=== PATIENT | female | born 1950 | race Caucasian/White ===

== ENCOUNTER 2018-07-20 14:44 | Emergency (ER) | payer MEDICARE, SELFPAY ==
[2018-07-20 14:45] VITALS: BP 136/78; PULSE 75; RESP 18; TEMP 36.6; O2SAT 98; BMI 24.4
--- NOTE | 2018-07-20 15:09 | EKG12_ITS ---
Test Reason : ABD PAIN Blood Pressure : / mmHG Vent. Rate : 068 BPM Atrial Rate : 068 BPM P-R Int : 130 ms QRS Dur : 080 ms QT Int : 420 ms P-R-T Axes : -05 035 025 degrees QTc Int : 446 ms Normal sinus rhythm Normal ECG Confirmed by SETH MICHELLE, ANIBAL ([id number]), index editor TERA HENDRICKSON ([id number]) on 07/22/2018 1:16:54 PM Referred By: AGUEDA Confirmed By:ANIBAL ANN MD
--- NOTE | 2018-07-20 15:09 | CT_ITS ---
STUDY: CT ABDOMEN AND PELVIS WITH CONTRAST REASON FOR EXAM: Female, 68 years old. Epigastric pain RADIATION DOSAGE (If Supplied By Facility): CTDIvol = ( 13.08 ) mGy, DLP = ( 612.17 ) mGycm TECHNIQUE: Transaxial images were obtained from the dome of the diaphragm to the symphysis pubis without oral contrast. 100CC ml of Isovue 300 contrast was administered. Sagittal and coronal images were reconstructed. Individualized dose optimization techniques were used for this CT. COMPARISON: Chest x-ray same date FINDINGS: Body wall soft tissues: No acute process. Osseous structures: No acute process. Inferior chest: There is a noncalcified subpleural pulmonary nodule right lower lobe lateral basilar segment in the sulcus measuring 4 mm, nonspecific. The lung bases are otherwise clear. Normal distal esophagus. Normal cardiac base. Hepatobiliary: Left hepatic cyst 1.2 cm, right hepatic cyst 1.3 cm, right hepatic cyst 7 mm, tiny caudate lobe cystlike focus and another tiny left hepatic cystlike focus, each measuring approximately 5 mm. The larger cysts exhibit simple cystic features, benign appearance. The smaller cysts are incompletely characterized based on size. Normal gallbladder and biliary tree. Pancreas: Minimal pancreatic ductal ectasia. No suspicious focal lesion and no significant atrophy. Spleen: Normal. Adrenal glands: Normal. Urogenital: Normal kidneys, collecting systems, ureters, urinary bladder, uterus. Tubal ligation clips bilateral adnexa. Unremarkable ovaries. No cul-de-sac free fluid. Pelvic floor and sidewalls and retroperitoneum: No mass or adenopathy. Vasculature: Mild atherosclerosis. Stomach: No acute process. Small bowel and mesentery: No acute process. Large bowel: Normal appendix. Diverticulosis of the distal descending and proximal to mid sigmoid colon, chronic-appearing thickening of wall of the proximal sigmoid colon without evidence of acute focal diverticulitis. Normal rectum. Free fluid or free air: None. CT/Abdomen/Pelvis W IV Cont ONLY IMPRESSION: Diverticulosis of the sigmoid colon without evidence of acute diverticulitis. No other acute abdominopelvic process is evident. There is a 4 mm pulmonary nodule at the right lung base, nonspecific. If the patient has any significant history of smoking (elevated risk factors), CT follow-up in 12 months is recommended based on the Fleischner Society Criteria 2017. In the absence of risk factors, no specific follow-up is recommended. Electronically Signed: Neeraj James, at 16:42 EDT Tel , Service support ,
--- NOTE | 2018-07-20 15:09 | RAD_ITS ---
STUDY: X-RAY CHEST REASON FOR EXAM: Female, 68 years old. Epigastric pain. TECHNIQUE: Single AP portable view of the chest. COMPARISON: None. FINDINGS: Hyperinflation. The lungs are clear. There is no demonstrated pleural abnormality. Normal size heart. Normal mediastinum and desiree. Normal visualized pulmonary arteries. There is atherosclerotic tortuosity of the aortic arch and descending thoracic aorta. There are diffuse degenerative changes of the visualized thoracic spine. Normal visualized ribs, clavicles, and shoulders. There is no demonstrated abnormality of the visualized soft tissue structures of the upper abdomen. RAD/Chest 1 View (Portable) IMPRESSION: Hyperinflation. The lungs are clear. Electronically Signed: Emmett Fish MD at 15:34 EDT Tel [phone], Service support ,
--- NOTE | 2018-07-20 15:14 | ED.DCSUM_ITS ---
- ER Visit Summary Date of Service: 07/20/18 Chief Complaint: Abdominal pain History of Present Illness: The patient is a 68 F with epigastric abdominal pain. History is limited as the patient has a aphasia of an unknown origin. She has been having epigastric abdominal pain. It was initially thought to be chest pain and she was evaluated in the emergency department several weeks ago. She saw her doctor yesterday who tried medications for her stomach, but her symptoms seem to be worsening. She has associated nausea. No other significant symptoms. History of diverticulitis, aortic valve disease, and thyroid surgery. Non-smoker. Physical Examination: Afebrile and vital signs unremarkable. Patient has expressive aphasia with nonsensical words. Heart regular rate and rhythm. Lungs clear bilaterally. Abdomen tender in the epigastric region. No guarding or rebound. Extremities nontender with no edema. Skin normal in color without pallor or jaundice. Patient is alert and in no acute distress. Test Results: EKG, chest x-ray, CT abdomen pelvis, labs, urine pending Emergency Department Course and Treatment: Patient treated with fluids, morphine , and Zofran while awaiting results. CBC normal. Chloride 108, CO2 20, BUN 22. Hepatic panel and lipase normal. Urinalysis unremarkable. Troponin normal. Chest x-ray showed hyperinflation but no acute abnormalities. CT showed diverticulosis without diverticulitis and a lung nodule but nothing else acute. Follow-up in 12 months. Continue home medications and outpatient follow-up. Treatment Plan: As above Disposition: Discharge Impression: 1. Abdominal pain unclear etiology 2. Lung nodule This note was generated with [employer] dictation software. It may contain incorrect words, spelling, and punctuation that were not noted in review of the chart prior to signing ED Disposition - Plan for ED Patient: Disposition: Home or Assisted Living Chief Complaint: Abd Pain Instructions: ED Abdominal Pain Unkn Cause Referrals: Ayanna Yousif MD [Primary Care Provider] -
[2018-07-20] MEDS: 0.9% Normal Saline 1,000 ML 1000 ML IV (15:28)
[2018-07-20] MEDS: Ondansetron 4 MG/2 ML Vial IV (15:29)
[2018-07-20] MEDS: Morphine 4 MG/ML Syringe IV (15:29)
[2018-07-20 15:39] LABS: Absolute Lymphocyte Count 1.71 X10^3/ul (0.83-4.51); Absolute Neutrophil Count 2.1 X10^3/uL (2.0-7.7); Basophil# 0.04 X10^3/uL; Basophil% 0.9 % (0-1); Eosinophil# 0.05 X10^3/uL; Eosinophils% 1.1 % (0-5); Hematocrit 35.6 % (37-47); Hemoglobin 12.4 g/dl (12.0-15.0); Lymphocyte # 1.71 X10^3/ul (4.0); Lymphocyte % 39.2 % (19-41); Mean Corp Hgb Conc 34.8 g/gl (32-36); Mean Corpuscular Hgb 30.2 pg (27.0-32.0); Mean Corpuscular Volume 86.8 fL (81-99); Monocyte# 0.47 X10^3/uL; Monocyte% 10.8 % (0-10); Neutrophil # 2.09 X10^3/uL (2.7-7.7); Platelet Count 225 K/mm3 (150-450); RBC Distribution Width CV 12.3 % (11.6-14.6); RBC Distribution Width SD 38.2 fl (35.1-43.9); White Blood Count 4.4 K/mm3 (4.4-11.0)
[2018-07-20 15:42] LABS: POSITIVE COUNT NO; POSITIVE DIFFERENTIAL NO; POSITIVE MORPHOLOGY NO
[2018-07-20 15:49] LABS: Bacteria 0 SEEN /hpf (None Seen)
[2018-07-20 15:53] LABS: ALB/GLOB Ratio 1.2 RATIO (0.9-2.4); AST(SGOT) 24 U/L (15-37); Alanine Aminotransfer ALT/SGPT 25 U/L (13-56); Albumin, Serum 4.1 g/dL (3.2-5.0); Alkaline Phosphatase 70 U/L (45-117); Anion Gap 12 (5-15); BUN 22 mg/dL (7-18); BUN/Creat Ratio 22.9 RATIO (10-20); Chloride 108 mmol/L (98-107); Creatinine, Serum 0.96 mg/dL (0.55-1.02); EST Glomerular Filtration Rate 61 mL/min (>60); Est Glom Filt Rate - Afr Amer 74 mL/min (>60); Estimated Creatinine Clearance 45.75 ml/min; Globulin 3.3 g/dL (2.2-4.2); Glucose 83 mg/dL (74-106); Lipase 234 U/L (73-393); Potassium 3.5 mmol/L (3.5-5.1); Protein, Total 7.4 g/dL (6.4-8.2); Sodium Level 140 mmol/L (136-145)
[2018-07-20 16:16] LABS: Color, Urine Yellow (Yellow); Glucose, Dipstick Normal (Normal); Leukocyte Esterase-Dipstick 25 /ul (Negative); Nitrite-Dipstick Negative (Negative); Occult Blood-Urine 25 /ul (Negative); Protein-Dipstick 15 mg/dl (Negative); Specific Gravity, Urine 1.015 (1.002-1.030); Urine Clarity Clear (Clear); Urine Urobilinogen 1 mg/dl (Normal); Urine pH 6.5 (5.0 - 8.0)
[2018-07-20 16:27] LABS: Urine Bilirubin Dipstick 1 mg/dL (Negative)
[2018-07-20 16:28] LABS: Ketone-Dipstick 150 mg/dl (Negative)
[2018-07-20 16:32] LABS: Mucous, Urine 2+ /hpf (<or=2+); Red Blood Cells-Urine 5-10 SEEN /hpf (0-5); Squamous Epithelial Cells - UA 0-5 SEEN /hpf (5-10); White Blood Cells 0-5 SEEN /hpf (0-5)
--- NOTE | 2018-07-20 17:51 | ED.DEP ---
ED Disposition - Plan for ED Patient: Chief Complaint: Abd Pain Instructions: ED Abdominal Pain Unkn Cause Referrals: Ayanna Yousif MD [Primary Care Provider] -
[2018-07-20 18:15] VITALS: BP 154/74; PULSE 65; RESP 16; O2SAT 99
== END 2018-07-20 18:16 | disposition home or self-care (01) ==
PROVIDERS: Emergency Provider Emergency Medicine; Family Provider Internal Medicine; PCP Internal Medicine
DX: R10.13 Epigastric pain (principal); R91.1 Solitary pulmonary nodule; R11.0 Nausea; R47.01 Aphasia; K57.30 Diverticulosis of large intestine without perforation or abscess without bleeding; I35.8 Other nonrheumatic aortic valve disorders; Z87.19 Personal history of other diseases of the digestive system; Z79.899 Other long term (current) drug therapy
CPT/HCPCS: 71045; 74177; 80053; 81001; 83690; 84484; 85025; 93005; 96361; 96374; 96375; 99283; J7030; Q9967; J2405

== ENCOUNTER 2018-07-25 16:16 | Emergency (ER) | payer MEDICARE, SELFPAY ==
[2018-07-25 16:17] VITALS: BP 155/77; PULSE 79; RESP 18; TEMP 36.7; O2SAT 98; BMI 25.2
[2018-07-25 16:59] VITALS: BP 154/116; PULSE 74; RESP 16; O2SAT 100
[2018-07-25 18:37] LABS: Absolute Lymphocyte Count 1.47 X10^3/ul (0.83-4.51); Absolute Neutrophil Count 2.4 X10^3/uL (2.0-7.7); Basophil# 0.04 X10^3/uL; Basophil% 0.9 % (0-1); Eosinophil# 0.08 X10^3/uL; Eosinophils% 1.8 % (0-5); Hematocrit 36.3 % (37-47); Hemoglobin 12.9 g/dl (12.0-15.0); Lymphocyte # 1.47 X10^3/ul (4.0); Lymphocyte % 32.2 % (19-41); Mean Corp Hgb Conc 35.5 g/gl (32-36); Mean Corpuscular Hgb 30.4 pg (27.0-32.0); Mean Corpuscular Volume 85.6 fL (81-99); Mean Platelet Vol. 9.5 fl (6.2-12.0); Monocyte# 0.55 X10^3/uL; Neutrophil # 2.43 X10^3/uL (2.7-7.7); Neutrophil % 53.1 % (47-70); Platelet Count 217 K/mm3 (150-450); RBC Distribution Width CV 12.3 % (11.6-14.6); RBC Distribution Width SD 37.2 fl (35.1-43.9); Red Blood Count 4.24 M/mm3 (4.2-5.4); White Blood Count 4.6 K/mm3 (4.4-11.0)
[2018-07-25 18:39] LABS: POSITIVE COUNT NO; POSITIVE DIFFERENTIAL NO; POSITIVE MORPHOLOGY NO
[2018-07-25 18:49] LABS: ALB/GLOB Ratio 1.3 RATIO (0.9-2.4); AST(SGOT) 40 U/L (15-37); Alanine Aminotransfer ALT/SGPT 38 U/L (13-56); Albumin, Serum 4.1 g/dL (3.2-5.0); Alkaline Phosphatase 64 U/L (45-117); Anion Gap 12 (5-15); BUN 17 mg/dL (7-18); BUN/Creat Ratio 19.8 RATIO (10-20); Calcium,Total 8.9 mg/dL (8.5-10.1); Chloride 108 mmol/L (98-107); Creatinine, Serum 0.86 mg/dL (0.55-1.02); EST Glomerular Filtration Rate 70 mL/min (>60); Est Glom Filt Rate - Afr Amer 84 mL/min (>60); Estimated Creatinine Clearance 48.83 ml/min; Globulin 3.2 g/dL (2.2-4.2); Glucose 81 mg/dL (74-106); Lipase 323 U/L (73-393); Potassium 3.2 mmol/L (3.5-5.1); Protein, Total 7.3 g/dL (6.4-8.2); Sodium Level 140 mmol/L (136-145)
[2018-07-25] MEDS: Ondansetron 4 MG/2 ML Vial IV (18:57)
[2018-07-25] MEDS: Morphine 2 MG/ML Syringe IV (18:57)
[2018-07-25 19:02] VITALS: BP 154/83; PULSE 63; RESP 16; O2SAT 100
--- NOTE | 2018-07-25 19:14 | ED.VISSUMM ---
- ER Visit Summary Date of Service: 07/25/18 Chief Complaint: Abdominal pain History of Present Illness: The patient is a 68 F who presents with abdominal pain. History is limited due to expressive aphasia. This is due to primary progressive aphasia rather than stroke. Over the last 2-3 weeks she has been complaining of abdominal pain which is worse in the lower abdomen. She has been seen at [facility] emergency department. She was also recently seen in this emergency department and labs and a CT which was normal. No nausea vomiting or diarrhea. No fevers. Physical Examination: Afebrile vitals are notable for elevated blood pressure otherwise normal Moist mucous membranes Heart regular rate and rhythm Lungs clear Abdomen soft nondistended she does have left lower quadrant tenderness without guarding without rebound Alert Test Results: CBC and CMP and lipase are notable for potassium of 3.2 otherwise basically normal. Emergency Department Course and Treatment: Patient was given morphine and Zofran here for symptomatic control. She does have a history of prior diverticulitis. There was not evidence of diverticulitis on her recent CT but she has developed more focal left lower quadrant pain. Given lack of fever tachycardia leukocytosis I did not feel that she needed reimaged given that she just recently had a CT but would treat her for possible early diverticulitis. She was given a prescription for oral antibiotics and will be discharged home. She understands return for new or worsening symptoms. Treatment Plan: [] Disposition: Discharge Impression: Left lower quadrant abdominal pain, possible early diverticulitis This note was generated with [employer] dictation software. It may contain incorrect words, spelling, and punctuation that were not noted in review of the chart prior to signing ED Disposition - Plan for ED Patient: Chief Complaint: Abd Pain Referrals: Ayanna Yousif MD [Primary Care Provider] -
--- NOTE | 2018-07-25 19:16 | ED.DEP ---
ED Disposition - Plan for ED Patient: Chief Complaint: Abd Pain Prescriptions: Metronidazole [Flagyl] 500 mg PO Q8H #21 tab Ciprofloxacin [Cipro] 500 mg PO BID #14 tab Referrals: Ayanna Yousif MD [Primary Care Provider] -
[2018-07-25 19:44] VITALS: BP 147/74; PULSE 66; RESP 18; O2SAT 99
== END 2018-07-25 19:45 | disposition home or self-care (01) ==
LOC: ED 18:59
PROVIDERS: Emergency Provider Emergency Medicine; Family Provider Internal Medicine; PCP Internal Medicine
DX: R10.32 Left lower quadrant pain (principal); R47.01 Aphasia; K21.9 Gastro-esophageal reflux disease without esophagitis; I10 Essential (primary) hypertension; E03.9 Hypothyroidism, unspecified; Z87.19 Personal history of other diseases of the digestive system; Z79.899 Other long term (current) drug therapy
CPT/HCPCS: 80053; 83690; 85025; 96374; 96375; 99283; A4216; J2405

== ENCOUNTER 2018-08-07 12:34 | Emergency (ER) | payer MEDICARE, SELFPAY ==
[2018-08-07 12:34] VITALS: BP 132/71; PULSE 80; RESP 16; TEMP 36.6; O2SAT 100; BMI 23.9
--- NOTE | 2018-08-07 12:48 | CT_ITS ---
STUDY: CT ABDOMEN AND PELVIS WITHOUT CONTRAST REASON FOR EXAM: Female, 68 years old. Lower abdominal pain. Recently seen in the ER for similar findings. RADIATION DOSAGE (If Supplied By Facility): CTDIvol = ( 6.23 ) mGy, DLP = ( 279.95 ) mGycm TECHNIQUE: Transaxial images were obtained from the dome of the diaphragm to the symphysis pubis without oral contrast, and without intravenous contrast. Sagittal and coronal images were reconstructed. Individualized dose optimization techniques were used for this CT. COMPARISON: CT of the abdomen and pelvis, July 20, 2018. FINDINGS: There is a stable pleural-based density in the right lateral costophrenic angle. This appears unchanged from prior exam. The visualized portions of the heart are within normal limits. Liver is normal in size and contour. There are stable cysts in segments 2, 8 and 6 of the liver. Normal gallbladder and extrahepatic biliary system. Normal spleen. Normal pancreas. Normal bilateral adrenal glands. Normal right kidney. Normal left kidney. Normal bilateral ureters. Normal visualized stomach. Normal small intestine. There is descending and sigmoid diverticulosis without acute inflammatory change. The proximal colon is normal. The appendix is visualized and appears normal. There is diffuse atherosclerotic calcification of the abdominal aorta, without a demonstrated aneurysm. Normal inferior vena cava. Normal retroperitoneum. Normal urinary bladder. Normal uterus. There are tubal ligation clips. Normal adnexa. There is no pelvic lymphadenopathy or mass. No free air or free fluid is seen within the peritoneal cavity. There is a small umbilical hernia of omental fat. The abdominal wall is otherwise unremarkable. There is minimal anterolisthesis of L3 on L4 without pars defects. Lumbar spine appears otherwise unremarkable. CT/Abdomen/Pelvis without Cont IMPRESSION: 1. Stable hepatic cysts. 2. Colonic diverticulosis without acute inflammatory change. 3. Stable lumbar spine findings. 4. There is no evidence of acute intra-abdominal process or interval change. Electronically Signed: Jermaine Bedolla DO at 14:09 EDT Tel [phone], Service support ,
--- NOTE | 2018-08-07 12:49 | EKG12_ITS ---
Test Reason : DYSRHYTHMIA Blood Pressure : / mmHG Vent. Rate : 070 BPM Atrial Rate : 070 BPM P-R Int : 134 ms QRS Dur : 076 ms QT Int : 416 ms P-R-T Axes : -02 040 012 degrees QTc Int : 449 ms Normal sinus rhythm Normal ECG Confirmed by SETH MICHELLE, ANIBAL ([id number]), managing editor TERA HENDRICKSON ([id number]) on 08/09/2018 3:06:42 PM Referred By: YAMILKA Confirmed By:ANIBAL ANN MD
--- NOTE | 2018-08-07 12:52 | ED.DCSUM_ITS ---
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 The patient's been having lower abdominal pain that is migratory for about a month she was seen by the primary care office she is been seen in the emergency department she had lab testing CAT scans are unremarkable the etiology of the pain is unclear, at one point time recently she was started on oral antibiotics because of the concern for possible diverticulitis which she has had in the past, she did not like the taste of the antibiotic so she only took them for a few days, the daughter reports the patient indicated to her that she was having more abdominal pain and she brought her to the hospital The patient is able to basically execute all of her daily activities in the home so she dresses herself cooks for herself goes to the restroom on her own, per the daughter has been no change in her bowel or bladder habits no fever no cough nothing makes the pain better or worse Physical Examination: [] General, no distress resting comfortably HEENT is generally unremarkable The neck is supple no adenopathy Cardiovascular, regular rate and rhythm Lungs, clear bilateral Abdomen, soft nontender, the patient points to the lower abdominal regions right and left complaining of pain here the abdomen is soft and nontender there is no organomegaly fullness or other abnormalities the back is unremarkable Rectal exam shows soft brown stool nontender Extremities, no clubbing cyanosis or edema Neurologic, awake alert answering questions with nonsensical responses which per the daughter is at her baseline, so she is moving all 4 extremities and neurologically at her baseline Test Results: [] Emergency Department Course and Treatment: [] Given the complaints IV fluids UA labs CT abdomen, all of the studies are generally unremarkable please see those reports, calcium slightly low oral supplementation given, the CT scan showed no acute interval change of any kind, patient is resting comfortably in the bed of explained to the daughter that given the chronic nature of this lower abdominal pelvic pain the etiology is unclear she should follow with her outpatient providers for further management she might consider making the patient appoint with 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 It may contain incorrect words, spelling, and punctuation that were not noted in review of the chart prior to signing ED Disposition - Plan for ED Patient: Chief Complaint: Abd Pain Referrals: Ayanna Yousif MD [Primary Care Provider] -
[2018-08-07] MEDS: 0.9% Normal Saline 1,000 ML 1000 ML IV (13:18)
[2018-08-07] MEDS: Morphine 4 MG/ML Syringe IV (13:18)
[2018-08-07] MEDS: Ondansetron 4 MG/2 ML Vial IV (13:19)
[2018-08-07 13:40] LABS: Absolute Lymphocyte Count 1.22 X10^3/ul (0.83-4.51); Absolute Neutrophil Count 1.8 X10^3/uL (2.0-7.7); Basophil# 0.05 X10^3/uL; Basophil% 1.5 % (0-1); Eosinophil# 0.05 X10^3/uL; Eosinophils% 1.5 % (0-5); Hematocrit 36.9 % (37-47); Hemoglobin 13.1 g/dl (12.0-15.0); Lymphocyte # 1.22 X10^3/ul (4.0); Lymphocyte % 35.9 % (19-41); Mean Corp Hgb Conc 35.5 g/gl (32-36); Mean Corpuscular Hgb 30.4 pg (27.0-32.0); Mean Corpuscular Volume 85.6 fL (81-99); Mean Platelet Vol. 9.4 fl (6.2-12.0); Monocyte# 0.33 X10^3/uL; Monocyte% 9.7 % (0-10); Neutrophil # 1.75 X10^3/uL (2.7-7.7); Neutrophil % 51.4 % (47-70); POSITIVE COUNT NO; POSITIVE DIFFERENTIAL NO; POSITIVE MORPHOLOGY NO; Platelet Count 242 K/mm3 (150-450); RBC Distribution Width CV 12.2 % (11.6-14.6); RBC Distribution Width SD 36.9 fl (35.1-43.9); Red Blood Count 4.31 M/mm3 (4.2-5.4); White Blood Count 3.4 K/mm3 (4.4-11.0)
[2018-08-07 13:50] LABS: AST(SGOT) 21 U/L (15-37); Alanine Aminotransfer ALT/SGPT 28 U/L (13-56); Alkaline Phosphatase 55 U/L (45-117); Anion Gap 11 (5-15); BUN 14 mg/dL (7-18); BUN/Creat Ratio 15.9 RATIO (10-20); Bilirubin, Direct 0.13 mg/dL (0.00-0.30); Calcium,Total 9.1 mg/dL (8.5-10.1); Chloride 110 mmol/L (98-107); Creatinine, Serum 0.88 mg/dL (0.55-1.02); EST Glomerular Filtration Rate 68 mL/min (>60); Est Glom Filt Rate - Afr Amer 82 mL/min (>60); Estimated Creatinine Clearance 47.72 ml/min; Globulin 3.2 g/dL (2.2-4.2); Glucose 94 mg/dL (74-106); Lipase 254 U/L (73-393); Potassium 3.3 mmol/L (3.5-5.1); Protein, Total 7.2 g/dL (6.4-8.2); Sodium Level 142 mmol/L (136-145)
[2018-08-07 14:45] LABS: Bacteria 0 SEEN /hpf (None Seen); Mucous, Urine 0 SEEN /hpf (<or=2+); Red Blood Cells-Urine 0 SEEN /hpf (0-5); Squamous Epithelial Cells - UA 0 SEEN /hpf (5-10); White Blood Cells 0 SEEN /hpf (0-5)
[2018-08-07 14:58] LABS: Color, Urine Yellow (Yellow); Glucose, Dipstick Normal (Normal); Ketone-Dipstick 5 mg/dl (Negative); Leukocyte Esterase-Dipstick Negative /ul (Negative); Nitrite-Dipstick Negative (Negative); Occult Blood-Urine Negative /ul (Negative); Protein-Dipstick Negative (Negative); Urine Bilirubin Dipstick Negative (Negative); Urine Clarity Clear (Clear); Urine Urobilinogen Normal (Normal)
--- NOTE | 2018-08-07 15:26 | ED.DEP ---
ED Disposition - Plan for ED Patient: Chief Complaint: Abd Pain Instructions: ED Abdominal Pain Unkn Cause Referrals: Ayanna Yousif MD [Primary Care Provider] -
[2018-08-07 16:54] VITALS: BP 160/85
== END 2018-08-07 16:55 | disposition home or self-care (01) ==
LOC: ED 13:26
PROVIDERS: Emergency Provider Emergency Medicine; Family Provider Internal Medicine; PCP Internal Medicine
DX: R10.31 Right lower quadrant pain (principal); R10.32 Left lower quadrant pain; R47.01 Aphasia; Z87.19 Personal history of other diseases of the digestive system
CPT/HCPCS: 74176; 80048; 80076; 81001; 83690; 84484; 85025; 87086; 87088; 93005; 96361; 96374; 96375; 99285; J7030; A4216; J2405

== ENCOUNTER 2018-08-10 08:37 | Observation (INO) | payer MEDICARE, SELFPAY ==
[2018-08-10] VITALS (15 sets, daily range): BP systolic 85–156; BP diastolic 39–78; PULSE 52–79; RESP 12–20; TEMP 35.8–36.6; O2SAT 91–100; BMI 23.8; BMI 22.8; BMI 22.9
--- NOTE | 2018-08-10 | IMM_PTH ---
PATIENT: SHANIA MCQUEEN LOC: PCU U#:[id number] AGE/SX: 68/F ROOM: [facility] RE08/10/[address]: Dr. Colby Valdez MD : 1950 BED: 1 DIS: 08/11/2018 SPEC #: [id number] RECD: 08/10/18 14:50 STATUS: KHALIDA REQ #: [id number] BILLY: 08/10/18 00:[address]: Colby Valdez DEPT: IMMUNOHISTOCHEMISTRY RECD BY: Lali Suarez ENTERED: 08/10/18 14:51 SP TYPE: IMMUNO OTHR DR: Dr. Ayanna Yousif MD Tissues: Stomach, NOS Procedures: H Pylori (initial) PHYSICIAN & INSTITUTION [place] [id number] SPECIMEN INFORMATION: Tissue Source: Antral biopsy Clinical Info: GI bleed Specimen Number: [id number] CPT code: 50989 METHODOLOGY: Deparaffinized sections of prefer/formalin-fixed tissue or PAP/DQ stained slides are incubated with monoclonal/polyclonal antibodies/oligonucleotide probes. Localization is made via biotin free immunoperoxidase method. Appropriate controls are performed and reacted as expected. Results on target cell population are indicated in the following table: RESULTS: ANTIBODY / CLONE RESULT H Pylori (polyclonal) negative These tests were developed and their performance characteristics determined by [facility]. They may not have been cleared or approved by the U.S. Food and Drug Administration. The FDA has determined that such clearance or approval is not necessary. INTERPRETATION: Antral biopsy: Negative for Helicobacter pylori organisms. MALACHI:govind 08/11/18
--- NOTE | 2018-08-10 | GASB_PTH ---
PATIENT: SHANIA MCQUEEN LOC: PCU U#:[id number] AGE/SX: 68/F ROOM: [facility] RE08/10/[address]: Dr. Colby Valdez MD : 1950 BED: 1 DIS: 08/11/2018 SPEC #: [id number] RECD: 08/10/18 14:24 STATUS: KHALIDA REJose Angel #: [id number] BILLY: 08/10/18 00:[address]: Colby Valdez DEPT: SURGICAL PATHOLOGY RECD BY: Silverio Morataya ENTERED: 08/10/18 14:24 SP TYPE: Gastric Bx OTHR DR: Dr. Ayanna Yousif MD Tissues: Gastric mucous membrane Procedures: Surgery Specimen Level IV HEADER OPERATION: EGD ([facility]) PRE-OP DIAGNOSIS: GI bleed TISSUE SUBMITTED: Antral biopsy for H. pylori and pathology MICROSCOPIC DIAGNOSIS Gastric antrum, biopsy: Chronic gastritis. AM:govind 10/10/18 COMMENT The results of immunohistochemistry for Helicobacter pylori will be reported separately ([id number]). MICROSCOPIC DESCRIPTION Slides are reviewed. GROSS DESCRIPTION Received in fixative is one container labeled with the patient's name and designated antral biopsy. The specimen consists of one irregular fragment of light regan soft tissue that measures 0.8 x 0.2 x 0.1 cm. The specimen is totally submitted in one cassette. / SJ:rg 08/10/18 TC:3 CPT: 95299
--- NOTE | 2018-08-10 09:06 | ED.DCSUM_ITS ---
- ER Visit Summary Date of Service: 08/10/18 Chief Complaint: Nausea vomiting epigastric pain blood streaks in her vomitus History of Present Illness: The patient is a 68 F with 1 month history of epigastric pain, she has had some nausea and vomiting she has been seen in the emergency department as well as by PCP, she has an appointment in 3 weeks to see gastroenterology. She has no fever chills or weight loss. The concern today is that after vomiting she noticed some blood streaks. This has resolved and she feels back to her baseline although she still has some nausea and epigastric pain similar to what she has had over the past month. Physical Examination: Not appear in acute distress. Moist mucous membranes, no obvious facial deformity No C-spine tenderness supple neck. Regular rate and rhythm without any obvious murmurs Clear lungs bilaterally speaking in full sentences without any obvious respiratory distress Abdomen soft with epigastric pain, this is slight no guarding or rebound. Rectal exam does not show gross blood stool was light brown. Guaiac was sent. Moves all extremities without any difficulty or pain. Skin does not show any obvious rashes or lesions, no trauma. Alert oriented ?3 with no gross focal deficit Emergency Department Course and Treatment: Patient has an unremarkable workup. Her guaiac is however positive. I am wondering about a slow bleed from an ulcer. I discussed the patient with Dr. Valdez, patient will undergo endoscopy sometime today, IV PPI was given. She continues to be stable. She will be admitted to the hospital. Disposition: Admit in stable condition Impression: Upper GI bleed This note was generated with [employer] dictation software. It may contain incorrect words, spelling, and punctuation that were not noted in review of the chart prior to signing ED Disposition - Plan for ED Patient: Chief Complaint: GI Bleed Referrals: Ayanna Yousif MD [Primary Care Provider] -
[2018-08-10 09:27] LABS: Absolute Lymphocyte Count 1.21 X10^3/ul (0.83-4.51); Absolute Neutrophil Count 2.1 X10^3/uL (2.0-7.7); Basophil# 0.03 X10^3/uL; Basophil% 0.8 % (0-1); Eosinophil# 0.08 X10^3/uL; Eosinophils% 2.1 % (0-5); Hematocrit 37.3 % (37-47); Hemoglobin 12.7 g/dl (12.0-15.0); Lymphocyte # 1.21 X10^3/ul (4.0); Lymphocyte % 31.8 % (19-41); Mean Corpuscular Hgb 29.7 pg (27.0-32.0); Mean Corpuscular Volume 87.1 fL (81-99); Mean Platelet Vol. 9.6 fl (6.2-12.0); Monocyte# 0.43 X10^3/uL; Monocyte% 11.3 % (0-10); Neutrophil # 2.06 X10^3/uL (2.7-7.7); Platelet Count 202 K/mm3 (150-450); RBC Distribution Width CV 12.9 % (11.6-14.6); RBC Distribution Width SD 40.1 fl (35.1-43.9); Red Blood Count 4.28 M/mm3 (4.2-5.4); White Blood Count 3.8 K/mm3 (4.4-11.0)
[2018-08-10 09:30] LABS: POSITIVE COUNT NO; POSITIVE DIFFERENTIAL NO; POSITIVE MORPHOLOGY NO
[2018-08-10] MEDS: Ondansetron 4 MG/2 ML Vial IV (09:40)
[2018-08-10 09:51] LABS: ALB/GLOB Ratio 1.2 RATIO (0.9-2.4); AST(SGOT) 27 U/L (15-37); Alanine Aminotransfer ALT/SGPT 28 U/L (13-56); Albumin, Serum 4.1 g/dL (3.2-5.0); Alkaline Phosphatase 56 U/L (45-117); Anion Gap 11 (5-15); BUN 17 mg/dL (7-18); BUN/Creat Ratio 18.1 RATIO (10-20); Calcium,Total 9.1 mg/dL (8.5-10.1); Chloride 110 mmol/L (98-107); Creatinine, Serum 0.94 mg/dL (0.55-1.02); EST Glomerular Filtration Rate 63 mL/min (>60); Est Glom Filt Rate - Afr Amer 76 mL/min (>60); Estimated Creatinine Clearance 44.67 ml/min; Globulin 3.3 g/dL (2.2-4.2); Glucose 87 mg/dL (74-106); Lipase 200 U/L (73-393); Potassium 4.1 mmol/L (3.5-5.1); Protein, Total 7.4 g/dL (6.4-8.2); Sodium Level 142 mmol/L (136-145)
--- NOTE | 2018-08-10 10:10 | PCM.HP.STD ---
Problem List (1) Upper GI bleed Status: Acute (2) Hypothyroidism Status: Chronic Qualifiers: Hypothyroidism type: unspecified Qualified Code(s): E03.9 - Hypothyroidism, unspecified (3) HTN (hypertension) Status: Chronic Qualifiers: Hypertension type: essential hypertension Qualified Code(s): I10 - Essential (primary) hypertension (4) HLD (hyperlipidemia) Status: Chronic Qualifiers: Hyperlipidemia type: unspecified Qualified Code(s): E78.5 - Hyperlipidemia, unspecified (5) GERD (gastroesophageal reflux disease) Status: Chronic Qualifiers: Esophagitis presence: esophagitis presence not specified Qualified Code(s): K21.9 - Gastro-esophageal reflux disease without esophagitis History of Present Illness Date of Admission: 08/10/18 Chief Complaint: Epigastric pain, hematemesis The patient is a 68 y/o F w/ PMHx: Asthma, Chronic Expressive aphasia c/w progressive type of dementia without any CVA history, HTN, HLD, GERD, Hypothyroidism who presents to the [facility] ED on 08/10/18 with history of ongoing epigastric discomfort and ongoing uncontrolled reflux symptoms, placed on a PPI ~ 3 weeks ago per CHILD NUTRITION DIRECTOR at her PCP office with planned GI evaluation at the end of August; however, she had ongoing worsened abdominal discomfort including in the epigastric and RUQ region with nausea, emesis and now onset hematemesis. In the ED workup included T 97.3, heart rate 71, BP 146/74, respiratory rate 15, 100% on room air, CBC with WBC 3.8, heme globin 12.7, platelet 202 without market shift, CMP unremarkable, lipase 200, stool guaiac positive. Surgery, Dr. Valdez consulted per ED as concern for slow bleed secondary to an ulcer with planned admission and endoscopy, upper. In the ED patient administered IV PPI. Past Medical History Past Medical History (Chronic Problems): Chronic Problems Hypothyroidism (Chronic) HTN (hypertension) (Chronic) HLD (hyperlipidemia) (Chronic) GERD (gastroesophageal reflux disease) (Chronic) Allergies nut - unspecified Allergy (Verified 08/10/18 08:38) Unknown Penicillins Allergy (Verified 08/10/18 08:38) Hives atorvastatin Adverse Reaction (Verified 08/10/18 08:38) Unknown azithromycin Adverse Reaction (Verified 08/10/18 08:38) Unknown cephalexin Adverse Reaction (Verified 08/10/18 08:38) Unknown cholecalciferol (vitamin D3) Adverse Reaction (Verified 08/10/18 08:38) Unknown ezetimibe Adverse Reaction (Verified 08/10/18 08:38) Unknown fluvastatin Adverse Reaction (Verified 08/10/18 08:38) Unknown propoxyphene Adverse Reaction (Verified 08/10/18 08:38) Unknown triamcinolone Adverse Reaction (Verified 08/10/18 08:38) Unknown Home Medications: Ambulatory Orders Medication Instructions Recorded Levothyroxine Sodium [Synthroid] 100 mg PO DAILY 07/20/18 Omeprazole 40 mg PO DAILY 07/20/18 Quinapril HCl [Accupril] 20 mg PO DAILY 07/20/18 Surgical History: - - Thyroid resection, bilateral tubal ligation. 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 Paternal History Items: - - Paternal family history of DM, HD. Sibling History Items: - - Sister w/ DM history. Review of Systems Constitutional: Reports: Malaise, Weakness, Fatigue. Denies: Chills, Fever, Weight Change HEENT: Denies: Head Aches, Sinus Congestion, Sinus Drainage Cardiovascular: Denies: Chest Pain, Palpitations Respiratory: Denies: Cough, Shortness of breath at rest, Sputum production Gastrointestinal: Reports: Abdominal Pain, Hematemesis, Nausea, Vomiting Genitourinary: Denies: Dysuria Musculoskeletal: Denies: Joint Pain, Joint Tenderness Skin: Denies: Rash, Wounds Neurological: Reports: - - Chronic expressive aphasia.. Denies: Focal weakness, Numbness, Tingling Psychiatric: Denies: Anxiety, Depression, Homicidal Ideations, Suicidal Ideations Hematologic/ Lymphatic: Denies: Easy Bruising, Easy Bleeding VTE Information - Inpt Only VTE Present on Admission: No VTE Mechan Device Prophylaxis: SCD's VTE Pharm Prophylaxis ordered?: No Reason prophylaxis not ordered:: Medical Contraindication Patient Problems: Active and Suspected Problems Vomiting blood (Acute) Upper GI bleed (Acute) Subjective: Seated upright in the bed, fatigued appearance, uncomfortable appearing. Objective: Physical Examination: General: awake, alert, oriented x 3 and cooperative, seated upright in bed, fatigued appearance, ongoing abdominal pain. Skin: normal color, turgor, no icterus, cyanosis. HEENT: AT/NC, EOMI, PERRLA, dry MM, no carotid bruits or JVD noted, chronic expressive aphasia. Lungs: Diminished BS BL, > bases, mild effort, no rales, ronchi or wheezing. Heart: Regular rate and rhythm; no gallop, rub audible. Abdomen: soft, mild epigastric TTP, no RUQ pain, ND, mildly hyperactive BS, no HSM. Extremities: no cyanosis, clubbing, or edema. Neurological: patient awake, alert, oriented x 3; chronic expressive aphasia; cognitive function baseline intact, underlying dementia; pupils equally reactive to light and accomodation; cranial nerves II-XII grossly normal, moving all 4 extremities, strength moderately globally decreased secondary to acute presentation. Psychiatric: affect appears fatigued, mildly anxious, no acute evidence of depressive feelings. - Physical Exam Vital Signs Temp Pulse Resp BP Pulse Ox 97.3 F L 71 15 146/74 H 100 08/10/18 08:39 08/10/18 08:39 08/10/18 08:39 08/10/18 08:39 08/10/18 08:39 Oxygen Delivery Method Room Air Weight: 130 lb 4.691 oz Body Mass Index (BMI) 23.8 Microbiology Past 72 Hours 08/10/18 09:00 Stool Occult Blood (PHILLIP) - Final Stool Occult Blood Positive Laboratory Tests Past 24 Hrs 08/10/18 08/10/18 09:20 09:20 WBC 3.8 L RBC 4.28 Hgb 12.7 Hct 37.3 MCV 87.1 MCH 29.7 MCHC 34.0 RDW 12.9 RDW Differential 40.1 Plt Count 202 MPV 9.6 Immature Gran % (Auto) 0.000 Neut % (Auto) 54.0 Lymph % (Auto) 31.8 Rooks % (Auto) 11.3 H Eos % (Auto) 2.1 Baso % (Auto) 0.8 Absolute Neuts (auto) 2.1 Absolute Lymphs (auto) 1.21 Total Counted Not Reportable Sodium 142 Potassium 4.1 Chloride 110 H Carbon Dioxide 21.0 Anion Gap 11 BUN 17 Creatinine 0.94 Estim Creat Clear Calc 44.67 Est GFR (MDRD) Af Amer 76 Est GFR (MDRD) Non-Af 63 BUN/Creatinine Ratio 18.1 Glucose 87 Calcium 9.1 Total Bilirubin 0.90 AST 27 ALT 28 Alkaline Phosphatase 56 Total Protein 7.4 Albumin 4.1 Globulin 3.3 Albumin/Globulin Ratio 1.2 Lipase 200 Assessment/Plan All Active Problems Vomiting blood (Acute) Upper GI bleed (Acute) The patient is a 68 y/o F w/ PMHx: Asthma, Chronic Expressive aphasia c/w progressive type of dementia without any CVA history, HTN, HLD, GERD, Hypothyroidism who presents to the [facility] ED on 08/10/18 with history of ongoing epigastric discomfort and ongoing uncontrolled reflux symptoms, placed on a PPI ~ 3 weeks ago per CHILD NUTRITION DIRECTOR at her PCP office with planned GI evaluation at the end of August; however, she had ongoing worsened abdominal discomfort including in the epigastric and RUQ region with nausea, emesis and now onset hematemesis. (1) Hematemesis with concern for Acute GI Bleed, Suspected Upper: Patient w/ hematemesis, ED guiac positive, admission Hgb 12.7, recent 08/07/18 Hgb 13.1, prior trending 12 range normal, will admit to PCU given GI Bleeding Upper concerns, maintain on IVFs. Will obtain serial H+H q 6 hours, maintain on IV PPI. NPO status. Surgery consulted, planned endoscopy. (2) Hypertension: Continue home regimen including lisinopril with hold parameters. (3) Hyperlipidemia: Noted statin allergy. (4) Hypothyroidism: s/p thyroid resection, history of numerous thyroid nodules. Continue home synthroid regimen. (5) GERD: PPI IV as noted for suspected GI bleed #1. (6) Chronic Expressive Aphasia: Progressive, no history of CVA, felt secondary to dementia. (7) Asthma: Mild, HOB, IS, Albuterol per RT PRN. (8) DVT Prophylaxis: SCDs, defer chemoprophylaxis given GI bleed presentation as noted #1. Code Visit Inpatient E&M: 98262 Init Hosp L3
--- NOTE | 2018-08-10 10:16 | NURSING ---
PCU AFTER SURGERY GI BLEED, UPPER SUSPECTED WHITE
--- NOTE | 2018-08-10 10:58 | CON.PCM_ITS ---
Problem List (1) Vomiting blood Status: Acute Qualifiers: Nausea presence: with nausea Qualified Code(s): K92.0 - Hematemesis Reason for Consult Date of Consultation: 08/10/18 Reason for Consultation: Bloody vomiting History of Present Illness: The patient is a 68 year old F with expressive aphasia. History and review of systems was gained through the patient's daughter. The patient's daughter reports that the patient had been complaining of reflux and epigastric pain for the past month. She was placed on PPI 3 weeks ago by her nurse practitioner. The patient is supposed to see GI at the end of the month. The patient notes that she has never had an ultrasound of her gallbladder. She complains of left upper quadrant and left lower quadrant pain. The patient has been having vomiting recently and today she began vomiting blood. Stool guaiac was done in the emergency room and was positive for blood. Past Medical History Allergies nut - unspecified Allergy (Verified 08/10/18 08:38) Unknown Penicillins Allergy (Verified 08/10/18 08:38) Hives atorvastatin Adverse Reaction (Verified 08/10/18 08:38) Unknown azithromycin Adverse Reaction (Verified 08/10/18 08:38) Unknown cephalexin Adverse Reaction (Verified 08/10/18 08:38) Unknown cholecalciferol (vitamin D3) Adverse Reaction (Verified 08/10/18 08:38) Unknown ezetimibe Adverse Reaction (Verified 08/10/18 08:38) Unknown fluvastatin Adverse Reaction (Verified 08/10/18 08:38) Unknown propoxyphene Adverse Reaction (Verified 08/10/18 08:38) Unknown triamcinolone Adverse Reaction (Verified 08/10/18 08:38) Unknown Home Medications: Ambulatory Orders Medication Instructions Recorded Levothyroxine Sodium [Synthroid] 100 mg PO DAILY 07/20/18 Omeprazole 40 mg PO DAILY 07/20/18 Quinapril HCl [Accupril] 20 mg PO DAILY 07/20/18 Surgical History: no surgical history Smoking Status: Never smoker - *Family History Maternal History Items: Unknown Review of Systems Unable to obtain accurate/complete ROS d/t: Patient's expressive aphasia Patient Problems: Active and Suspected Problems Vomiting blood (Acute) - Physical Exam General: Alert, Oriented x3, Cooperative, No apparent distress HEENT: Atraumatic Neck: No JVD Lungs: Normal air movement Cardiovascular: Regular rate, Regular Rhythm Abdomen: Soft, Non-Distended, Tender - Tender in the left upper quadrant. No guarding or rebound. Extremities: No clubbing Musculoskeletal: No Muscle Wasting Neurological: Cranial nerves II-XII grossly intact, - - Expressive aphasia Psych/Mental Status: Normal Affect Vital Signs Temp Pulse Resp BP Pulse Ox 97.3 F L 58 L 16 156/78 H 100 08/10/18 08:39 08/10/18 10:31 08/10/18 10:31 08/10/18 10:31 08/10/18 10:31 Oxygen Delivery Method Room Air Weight: 130 lb 4.691 oz Body Mass Index (BMI) 23.8 Microbiology Past 72 Hours 08/10/18 09:00 Stool Occult Blood (PHILLIP) - Final Stool Occult Blood Positive Laboratory Tests Past 24 Hrs 08/10/18 08/10/18 09:20 09:20 WBC 3.8 L RBC 4.28 Hgb 12.7 Hct 37.3 MCV 87.1 MCH 29.7 MCHC 34.0 RDW 12.9 RDW Differential 40.1 Plt Count 202 MPV 9.6 Immature Gran % (Auto) 0.000 Neut % (Auto) 54.0 Lymph % (Auto) 31.8 [place] % (Auto) 11.3 H Eos % (Auto) 2.1 Baso % (Auto) 0.8 Absolute Neuts (auto) 2.1 Absolute Lymphs (auto) 1.21 Total Counted Not Reportable Sodium 142 Potassium 4.1 Chloride 110 H Carbon Dioxide 21.0 Anion Gap 11 BUN 17 Creatinine 0.94 Estim Creat Clear Calc 44.67 Est GFR (MDRD) Af Amer 76 Est GFR (MDRD) Non-Af 63 BUN/Creatinine Ratio 18.1 Glucose 87 Calcium 9.1 Total Bilirubin 0.90 AST 27 ALT 28 Alkaline Phosphatase 56 Total Protein 7.4 Albumin 4.1 Globulin 3.3 Albumin/Globulin Ratio 1.2 Lipase 200 Assessment/Plan All Active Problems Vomiting blood (Acute) 68-year-old female with bloody vomit 1. The patient notes she has been on a PPI for 3 weeks but is having epigastric pain and was vomiting and now the vomiting has become bloody. Differentials would include Magali-Tyson tear versus bleeding ulcer. The other possibility is that she has been having a lot of vomiting and irritation due to a gallbladder etiology. I would recommend a gallbladder ultrasound during this admission to check for gallstones. It is possible that if she does have gallstones this is causing the nausea and the nausea and vomiting are causing the bleeding. 2. Currently I will perform an EGD to check for sources of bleeding. Patient had a colonoscopy about 6 years ago. If EGD is normal in the stool guaiac was positive I would recommend repeating a colonoscopy electively. I explained to the patient and the daughter that if there was a Magali-Tyson tear and should stop bleeding on its own. If there is a bleeding ulcer I would be able to hopefully inject epinephrine or place a clip on the bleeding and I would continue her PPI and probably add Carafate. 3. I explained endoscopy in detail to the patient. I explained the risks including but not limited to stroke or heart attack with anesthesia, perforation of the GI tract, bleeding, infection. I explained that any of these could necessitate further emergency surgery. The patient understands and all questions were answered sufficiently. The patient wishes to proceed with procedure. Colby Valdez MD Pager: [facility] [address] [place] [address], [address] [place] [address] Office:
--- NOTE | 2018-08-10 12:27 | OP.ENDO_ITS ---
Patient Name: Karen Israel Procedure Date: 08/10/2018 11:51 AM Date of : 1950 Age: 68 Procedure: Upper GI endoscopy Indications: Epigastric abdominal pain, Hematemesis, Heme positive stool Providers: Colby Valdez MD Medicines: Monitored Anesthesia Care Complications: No immediate complications. Procedure: Pre-Anesthesia Assessment: - Prior to the procedure, a History and Physical was performed, and patient medications and allergies were reviewed. The patient's tolerance of previous anesthesia was also reviewed. The risks and benefits of the procedure and the sedation options and risks were discussed with the patient. All questions were answered, and informed consent was obtained. Prior Anticoagulants: The patient has taken no previous anticoagulant or antiplatelet agents. After reviewing the risks and benefits, the patient was deemed in satisfactory condition to undergo the procedure. After obtaining informed consent, the endoscope was passed under direct vision. Throughout the procedure, the patient's blood pressure, pulse, and oxygen saturations were monitored continuously. The gastroscope was introduced through the mouth, and advanced to the second part of duodenum. The upper GI endoscopy was accomplished without difficulty. The patient tolerated the procedure well. Scope In: 12:07:42 PM Scope Out: 12:17:33 PM Total Procedure Duration Time 0 hours 9 minutes 51 seconds Findings: Diffuse severe inflammation characterized by adherent blood was found in the gastric fundus. The esophagus was normal. The examined duodenum was normal. Biopsies were taken with a cold forceps in the gastric antrum for Helicobacter pylori testing. Impression: - Acute gastritis. - Normal esophagus. - Normal examined duodenum. - Biopsies were taken with a cold forceps for Helicobacter pylori testing. Recommendation: - Await pathology results. - Advance diet as tolerated. - Continue present medications. - Use a proton pump inhibitor PO daily. - Use sucralfate tablets 1 gram PO QID. Procedure Code(s): --- Professional --- 83361, Esophagogastroduodenoscopy, flexible, transoral; with biopsy, single or multiple Diagnosis Code(s): --- Professional --- K29.00, Acute gastritis without bleeding R10.13, Epigastric pain K92.0, Hematemesis R19.5, Other fecal abnormalities CPT copyright 2017 [employer]. All rights reserved. The codes documented in this report are preliminary and upon office equipment technician review may be revised to meet current compliance requirements. Colby Valdez MD 08/10/2018 12:26:49 PM This report has been signed electronically. Number of Addenda: 0 Note Initiated On: 08/10/2018 11:51 AM
[2018-08-10] MEDS: 0.9% Normal Saline 1,000 ML 100 ML IV (15:09)
[2018-08-10 15:43] LABS: Hematocrit 37.4 % (37-47); Hemoglobin 12.8 g/dl (12.0-15.0)
[2018-08-10] MEDS: Sucralfate 1 GM Tablet PO ×2 (17:39→21:17)
[2018-08-10 18:19] LABS: Hematocrit 36.9 % (37-47); Hemoglobin 12.4 g/dl (12.0-15.0)
[2018-08-10] MEDS: Pantoprazole Sodium 40 MG Tablet PO (21:17)
[2018-08-10 22:18] LABS: Hematocrit 35.5 % (37-47); Hemoglobin 12.4 g/dl (12.0-15.0)
[2018-08-11 01:51] LABS: Hematocrit 34.2 % (37-47); Hemoglobin 11.9 g/dl (12.0-15.0)
[2018-08-11 03:00] VITALS: BP 124/74; PULSE 65; RESP 16; TEMP 36.3; O2SAT 98
[2018-08-11 03:08] VITALS: PULSE 59
[2018-08-11 05:29] LABS: Hematocrit 36.3 % (37-47); Hemoglobin 12.3 g/dl (12.0-15.0)
[2018-08-11 05:46] LABS: Anion Gap 7 (5-15); BUN 10 mg/dL (7-18); BUN/Creat Ratio 13.9 RATIO (10-20); Calcium,Total 8.5 mg/dL (8.5-10.1); Chloride 112 mmol/L (98-107); Creatinine, Serum 0.72 mg/dL (0.55-1.02); EST Glomerular Filtration Rate 86 mL/min (>60); Est Glom Filt Rate - Afr Amer 104 mL/min (>60); Estimated Creatinine Clearance 43.92 ml/min; Glucose 89 mg/dL (74-106); Potassium 3.3 mmol/L (3.5-5.1); Sodium Level 140 mmol/L (136-145)
--- NOTE | 2018-08-11 06:28 | DCINST_ITS ---
- Discharge Diagnoses Current Active Problems: Current Active and Chronic Problems (1) Hematemesis secondary to Acute Gastritis (2) Hypertension (3) Hyperlipidemia (4) Hypothyroidism (5) GERD (6) Chronic Expressive Aphasia (7) Asthma You will use the following diet at home:: Cardiac - Cardiac with diet parameters as noted per nutrition given gastritis present. Your food should be the consistency of: Regular Your liquids should be the consistency of: Regular/Thin Discharge Activity: Return to Normal Activity May resume sexual activity in: No Restrictions Weight Bearing Status: Weight bearing as tolerated Call your doctor if you observe: Fever of 101 or Higher, Inability to urinate, Inability to have a bowel movement, Shortness of breath, Dizziness, Fainting spells, Chest pain, Uncontrolled pain, - - Recurrent vomiting of blood or onset dark black tarry appearing stools. Instructions: Upper GI Endoscopy, Treating Gastritis, Understanding Gastritis, ED Gastritis, Lifestyle Changes for Controlling GERD Allergies/Adverse Reactions: Allergies nut - unspecified Allergy (Verified 08/10/18 08:38) Unknown Penicillins Allergy (Verified 08/10/18 08:38) Hives atorvastatin Adverse Reaction (Verified 08/10/18 08:38) Unknown azithromycin Adverse Reaction (Verified 08/10/18 08:38) Unknown cephalexin Adverse Reaction (Verified 08/10/18 08:38) Unknown cholecalciferol (vitamin D3) Adverse Reaction (Verified 08/10/18 08:38) Unknown ezetimibe Adverse Reaction (Verified 08/10/18 08:38) Unknown fluvastatin Adverse Reaction (Verified 08/10/18 08:38) Unknown propoxyphene Adverse Reaction (Verified 08/10/18 08:38) Unknown triamcinolone Adverse Reaction (Verified 08/10/18 08:38) Unknown Medications to take at Discharge Levothyroxine Sodium [Synthroid] 100 mg PO DAILY 07/20/18 Quinapril HCl [Accupril] 20 mg PO DAILY 07/20/18 Cholecalciferol (Vitamin D3) [Vitamin D3] 1,000 unit PO DAILY 08/10/18 Ubidecarenone/Vitamin E [Co Q-10 50 mg Softgel] 1 each PO DAILY 08/10/18 Pantoprazole Sodium [Protonix] 40 mg PO BID #60 tablet 08/11/18 Sucralfate [Carafate] 1 gm PO 1HR_ACHS #120 tablet 08/11/18 The following prescriptions were given: Sucralfate [Carafate] 1 gm PO 1HR_ACHS #120 tablet Pantoprazole Sodium [Protonix] 40 mg PO BID #60 tablet Primary Care Physician: Ayanna Yousif MD [Primary Care Provider] - Please follow up with your Primary Care Physician in: Follow-up within 3-5 days to review admission. Test Results: Test results from this visit will be discussed in further detail at your follow- up appointment, if applicable. Please Follow Up With: Colby Valdez MD When: Follow-up in 1-2 weeks to review admit, reassess, review biopsy. Proposed Discharge Date: 08/11/18
--- NOTE | 2018-08-11 06:34 | DS.PCM_ITS ---
Discharge Date and Diagnosis Date of Admission: 08/10/18 Date of Discharge: 08/11/18 - Primary Discharge Diagnosis Active and Suspected Problems Vomiting blood (Acute) Upper GI bleed (Acute) - Secondary Discharge Diagnosis Chronic Problems Hypothyroidism (Chronic) HTN (hypertension) (Chronic) HLD (hyperlipidemia) (Chronic) GERD (gastroesophageal reflux disease) (Chronic) Hospital Course and Treatment Dr. 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 ED guiac positive, admission Hgb 12.7, recent 08/07/18 Hgb 13.1, prior trending 12 range normal. Admitted to PCU, maintained on IVFs, serial HH obtained which remained stable, patient maintained on PPI, Surgery evaluation w/ EGD w/ no evidence of active bleeding noted; however, did note blood when retroflexed with evidence of gastritis therefore recommendation to continue oral PPI, add Carafate, allow resumption of diet. Patient diet advanced, transitioned to oral high dose PPI and carafate added. Patient discharged to home w/ recommended PCP follow-up as well as Surgery within 1-2 weeks to review bx on high dose PPI and carafate. DAY OF DISCHARGE PROGRESS NOTE: Subjective: Patient without acute event overnight per self and nursing report. No recurrent episodes of hematemesis. Patient without evidence of fever, chills, nausea, emesis, abdominal pain, chest pain or dyspnea. Patient agreeable to discharge to discharge to home with her daughter. Patient will be discharged with follow-up with primary care physician within 3-5 days in addition to Surgery in 1-2 weeks. Objective: T 97.4, heart rate 65, BP 124/74, respiratory rate 16, 98% on room air. Physical Examination: General: awake, alert, oriented x 3 and cooperative, seated upright in bed, NAD. Skin: normal color, turgor, no icterus, cyanosis. HEENT: AT/NC, EOMI, PERRLA, improved MMM. Lungs: Diminished BS BL, > bases, mild effort, no rales, ronchi or wheezing. Heart: Regular rate and rhythm; no gallop, rub audible. Abdomen: soft, mild epigastric TTP, no RUQ pain, ND, normalized BS. Extremities: no cyanosis, clubbing, or edema. Neurological: patient awake, alert, oriented x 3; chronic expressive aphasia; cognitive function baseline intact, underlying dementia; pupils equally reactive to light and accomodation; cranial nerves II-XII grossly normal, moving all 4 extremities, strength mildly to moderately globally decreased secondary to acute presentation. Psychiatric: affect appears fatigued, no acute evidence of depressive feelings. Assessment and Plan: Please see hospital summary above. - Physical Exam Vital Signs Temp Pulse Resp BP Pulse Ox 97.4 F L 59 L 16 124/74 H 98 08/11/18 03:00 08/11/18 03:08 08/11/18 03:00 08/11/18 03:00 08/11/18 03:00 Oxygen Flow Rate (L/min) 2 Oxygen Delivery Method Room Air Weight: 129 lb 3.054 oz Body Mass Index (BMI) 22.8 Intake and Output for Last 24 Hours 08/09/18 08/10/18 08/11/18 23:59 23:59 23:59 Intake Total 1868 / 1868 Balance 1868 / 1868 Microbiology Past 72 Hours 08/10/18 09:00 Stool Occult Blood (PHILLIP) - Final Stool Occult Blood Positive Laboratory Tests Past 24 Hrs 08/10/18 08/10/18 08/10/18 09:20 09:20 15:13 WBC 3.8 L RBC 4.28 Hgb 12.7 12.8 Hct 37.3 37.4 MCV 87.1 MCH 29.7 MCHC 34.0 RDW 12.9 RDW Differential 40.1 Plt Count 202 MPV 9.6 Immature Gran % (Auto) 0.000 Neut % (Auto) 54.0 Lymph % (Auto) 31.8 [place] % (Auto) 11.3 H Eos % (Auto) 2.1 Baso % (Auto) 0.8 Absolute Neuts (auto) 2.1 Absolute Lymphs (auto) 1.21 Total Counted Not Reportable Sodium 142 Potassium 4.1 Chloride 110 H Carbon Dioxide 21.0 Anion Gap 11 BUN 17 Creatinine 0.94 Estim Creat Clear Calc 44.67 Est GFR (MDRD) Af Amer 76 Est GFR (MDRD) Non-Af 63 BUN/Creatinine Ratio 18.1 Glucose 87 Calcium 9.1 Total Bilirubin 0.90 AST 27 ALT 28 Alkaline Phosphatase 56 Total Protein 7.4 Albumin 4.1 Globulin 3.3 Albumin/Globulin Ratio 1.2 Lipase 200 08/10/18 08/10/18 08/11/18 17:36 20:49 01:24 WBC RBC Hgb 12.4 12.4 11.9 L Hct 36.9 L 35.5 L 34.2 L MCV MCH MCHC RDW RDW Differential Plt Count MPV Immature Gran % (Auto) Neut % (Auto) Lymph % (Auto) [place] % (Auto) Eos % (Auto) Baso % (Auto) Absolute Neuts (auto) Absolute Lymphs (auto) Total Counted Sodium Potassium Chloride Carbon Dioxide Anion Gap BUN Creatinine Estim Creat Clear Calc Est GFR (MDRD) Af Amer Est GFR (MDRD) Non-Af BUN/Creatinine Ratio Glucose Calcium Total Bilirubin AST ALT Alkaline Phosphatase Total Protein Albumin Globulin Albumin/Globulin Ratio Lipase 08/11/18 08/11/18 05:16 05:16 WBC RBC Hgb 12.3 Hct 36.3 L MCV MCH MCHC RDW RDW Differential Plt Count MPV Immature Gran % (Auto) Neut % (Auto) Lymph % (Auto) [place] % (Auto) Eos % (Auto) Baso % (Auto) Absolute Neuts (auto) Absolute Lymphs (auto) Total Counted Sodium 140 Potassium 3.3 L Chloride 112 H Carbon Dioxide 21.0 Anion Gap 7 BUN 10 Creatinine 0.72 Estim Creat Clear Calc 43.92 Est GFR (MDRD) Af Amer 104 Est GFR (MDRD) Non-Af 86 BUN/Creatinine Ratio 13.9 Glucose 89 Calcium 8.5 Total Bilirubin AST ALT Alkaline Phosphatase Total Protein Albumin Globulin Albumin/Globulin Ratio Lipase Discharge Activity: Return to Normal Activity May resume sexual activity in: No Restrictions Weight Bearing Status: Weight bearing as tolerated Call your doctor if you observe: Fever of 101 or Higher, Inability to urinate, Inability to have a bowel movement, Shortness of breath, Dizziness, Fainting sp ells, Chest pain, Uncontrolled pain, - - Recurrent vomiting of blood or onset dark black tarry appearing stools. Home Medications: Medications to take at Discharge Levothyroxine Sodium [Synthroid] 100 mg PO DAILY 07/20/18 Quinapril HCl [Accupril] 20 mg PO DAILY 07/20/18 Cholecalciferol (Vitamin D3) [Vitamin D3] 1,000 unit PO DAILY 08/10/18 Ubidecarenone/Vitamin E [Co Q-10 50 mg Softgel] 1 each PO DAILY 08/10/18 Pantoprazole Sodium [Protonix] 40 mg PO BID #60 tablet 08/11/18 Sucralfate [Carafate] 1 gm PO 1HR_ACHS #120 tablet 08/11/18 Following Prescrptions Were Given to Patient: Sucralfate [Carafate] 1 gm PO 1HR_ACHS #120 tablet Pantoprazole Sodium [Protonix] 40 mg PO BID #60 tablet Primary Care Physician: Ayanna Yousif MD [Primary Care Provider] - Please follow up with your Primary Care Physician in: Follow-up within 3-5 days to review admission. Please Follow Up With: Colby Valdez MD When: Follow-up in 1-2 weeks to review admit, reassess, review biopsy. Patient Instructions: Upper GI Endoscopy, Lifestyle Changes for Controlling GERD, Treating Gastritis, Understanding Gastritis, ED Gastritis Disposition: Home Minutes spent on discharge:: 35 Patient Condition:: Fair Medical Necessity - Tobacco Use Smoking Status: Never smoker Tobacco Use: Non-smoker Meaningful Use Info Meaningful Use Diagnoses (Choose all that apply): None applicable Code Visit OBSV E&M: 33932 Observation care discharge
[2018-08-11] MEDS: Sucralfate 1 GM Tablet PO ×2 (06:47→09:54)
[2018-08-11] MEDS: Levothyroxine 100 MCG Tablet PO (06:47)
[2018-08-11 06:58] VITALS: O2SAT 97
[2018-08-11 07:24] VITALS: PULSE 62
--- NOTE | 2018-08-11 08:06 | PCM.PN.SRG ---
Patient Problems: Active and Suspected Problems Vomiting blood (Acute) Upper GI bleed (Acute) Subjective: Patient had no nausea or vomiting overnight. She did have minimal p.o. intake. - Physical Exam Lungs: Normal air movement Cardiovascular: Regular rate, Regular Rhythm Abdomen: Soft, Non Tender, Non-Distended Vital Signs Temp Pulse Resp BP Pulse Ox 97.4 F L 62 16 124/74 H 98 08/11/18 03:00 08/11/18 07:24 08/11/18 03:00 08/11/18 03:00 08/11/18 03:00 Oxygen Flow Rate (L/min) 2 Oxygen Delivery Method Room Air Weight: 129 lb 3.054 oz Body Mass Index (BMI) 22.8 Intake and Output for Last 24 Hours 08/09/18 08/10/18 08/11/18 23:59 23:59 23:59 Intake Total 1868 / 1868 200 / 200 Balance 1868 / 1868 200 / 200 Microbiology Past 72 Hours 08/10/18 09:00 Stool Occult Blood (PHILLIP) - Final Stool Occult Blood Positive Laboratory Tests Past 24 Hrs 08/10/18 08/10/18 08/10/18 09:20 09:20 15:13 WBC 3.8 L RBC 4.28 Hgb 12.7 12.8 Hct 37.3 37.4 MCV 87.1 MCH 29.7 MCHC 34.0 RDW 12.9 RDW Differential 40.1 Plt Count 202 MPV 9.6 Immature Gran % (Auto) 0.000 Neut % (Auto) 54.0 Lymph % (Auto) 31.8 [place] % (Auto) 11.3 H Eos % (Auto) 2.1 Baso % (Auto) 0.8 Absolute Neuts (auto) 2.1 Absolute Lymphs (auto) 1.21 Total Counted Not Reportable Sodium 142 Potassium 4.1 Chloride 110 H Carbon Dioxide 21.0 Anion Gap 11 BUN 17 Creatinine 0.94 Estim Creat Clear Calc 44.67 Est GFR (MDRD) Af Amer 76 Est GFR (MDRD) Non-Af 63 BUN/Creatinine Ratio 18.1 Glucose 87 Calcium 9.1 Total Bilirubin 0.90 AST 27 ALT 28 Alkaline Phosphatase 56 Total Protein 7.4 Albumin 4.1 Globulin 3.3 Albumin/Globulin Ratio 1.2 Lipase 200 08/10/18 08/10/18 08/11/18 17:36 20:49 01:24 WBC RBC Hgb 12.4 12.4 11.9 L Hct 36.9 L 35.5 L 34.2 L MCV MCH MCHC RDW RDW Differential Plt Count MPV Immature Gran % (Auto) Neut % (Auto) Lymph % (Auto) [place] % (Auto) Eos % (Auto) Baso % (Auto) Absolute Neuts (auto) Absolute Lymphs (auto) Total Counted Sodium Potassium Chloride Carbon Dioxide Anion Gap BUN Creatinine Estim Creat Clear Calc Est GFR (MDRD) Af Amer Est GFR (MDRD) Non-Af BUN/Creatinine Ratio Glucose Calcium Total Bilirubin AST ALT Alkaline Phosphatase Total Protein Albumin Globulin Albumin/Globulin Ratio Lipase 08/11/18 08/11/18 05:16 05:16 WBC RBC Hgb 12.3 Hct 36.3 L MCV MCH MCHC RDW RDW Differential Plt Count MPV Immature Gran % (Auto) Neut % (Auto) Lymph % (Auto) [place] % (Auto) Eos % (Auto) Baso % (Auto) Absolute Neuts (auto) Absolute Lymphs (auto) Total Counted Sodium 140 Potassium 3.3 L Chloride 112 H Carbon Dioxide 21.0 Anion Gap 7 BUN 10 Creatinine 0.72 Estim Creat Clear Calc 43.92 Est GFR (MDRD) Af Amer 104 Est GFR (MDRD) Non-Af 86 BUN/Creatinine Ratio 13.9 Glucose 89 Calcium 8.5 Total Bilirubin AST ALT Alkaline Phosphatase Total Protein Albumin Globulin Albumin/Globulin Ratio Lipase Medical Necessity - Tobacco Use Smoking Status: Never smoker Tobacco Use: Non-smoker Assessment/Plan All Active Problems Vomiting blood (Acute) Upper GI bleed (Acute) 68-year-old female with upper GI bleed 1. Continue PPI and Carafate. Diet as tolerated. Recommend repeat scope in 4-6 weeks to ensure resolution. Hemoglobin stable. Colby Valdez MD Pager: [facility] [address] [place] [address], [address] [place] [address] Office:
[2018-08-11 09:00] VITALS: BP 131/78; PULSE 64; RESP 16; TEMP 36.7; O2SAT 97
[2018-08-11 09:13] LABS: Hematocrit 40.2 % (37-47); Hemoglobin 13.7 g/dl (12.0-15.0)
[2018-08-11] MEDS: Pantoprazole Sodium 40 MG Tablet PO (09:53)
[2018-08-11] MEDS: Lisinopril 20 MG Tablet PO (09:54)
--- NOTE | 2018-08-11 10:26 | PHA.DC.MC ---
Pharmacy Service has performed discharge medication reconciliation and counseling for this patient. The patient's discharge medication list was reviewed for discrepancies and discrepancies were resolved. The patient was counseled on the following discharge medications and changes in medications for homegoing were reviewed. SUCRALFATE, PANTOPRAZOLE The Reason for Use, instructions for use, and potential side effects were reviewed for all new medications. The patient's questions regarding all of their medications were answered. The patient was not able to adequately demonstrate understanding. Spoke with the daughter of the patient whom she lives with and manages her medications. The patient's daughter verbalized understanding of both medications, all questions answered.
--- NOTE | 2018-08-13 12:42 | CASEMGMT ---
TONIE SNYDER Discharge Follow-Up Phone Call. LACE: 12 Strata: 4 Discharge Date: 08/11/18 Adm Dx: GIB Call placed for d/c follow-up. TONIE SNYDER spoke with pt's daughter, Shira, d/t pt has expressive aphasia. Shira states pt has been doing better and states pt has been allowing her to give her her medications. Shira states that pt's new medications were delivered to pt's room prior to discharge and denies having any questions about the medications or discharge instructions. Shira states she has made appts for pt with Dr Yousif which is on August 31 d/t it was the 1st available appt and with Dr Valdez on Aug 24. TONIE SNYDER thanked daughter for choosing [facility]. Randall MORILLO RN, CM
== END 2018-08-11 06:27 | disposition home or self-care (01) ==
LOC: ED 09:14 → EN 10:31 → ED 13:53 → PCU 14:20
PROVIDERS: Admitting Provider Family Medicine; Emergency Provider Emergency Medicine; Family Provider Internal Medicine; PCP Internal Medicine; Visit Provider Surgery
PROC: 0DJ08ZZ Inspection of Upper Intestinal Tract, Via Natural or Artificial Opening Endoscopic (ICD-10-PCS; CPT 43235; principal; 2018-08-10 11:55)
DX: K92.2 Gastrointestinal hemorrhage, unspecified (principal); K92.0 Hematemesis; E03.9 Hypothyroidism, unspecified; Z23 Encounter for immunization; Z79.899 Other long term (current) drug therapy; I10 Essential (primary) hypertension; K21.9 Gastro-esophageal reflux disease without esophagitis; E78.5 Hyperlipidemia, unspecified; J45.909 Unspecified asthma, uncomplicated; F03.90 Unspecified dementia, unspecified severity, without behavioral disturbance, psychotic disturbance, mood disturbance, and anxiety; R47.01 Aphasia; K29.50 Unspecified chronic gastritis without bleeding; R19.5 Other fecal abnormalities; K29.00 Acute gastritis without bleeding
CPT/HCPCS: 43239; 36415; 74176; 80048; 80053; 80076; 81001; 82274; 83690; 84484; 85014; 85018; 85025; 87086; 87088; 88305; 88342; 93005; 96105; 96361; 96365; 96367; 96374; 96375; 97802; 99218; 99283; 99285; G0008; J7030; J7120; 90686; A4216; G0378; G9162; G9163; G9164; J2405; J3490

== ENCOUNTER 2018-08-15 19:15 | Emergency (ER) | payer MEDICARE, SELFPAY ==
[2018-08-15 19:15] VITALS: BP 126/71; PULSE 79; RESP 14; TEMP 37.1; O2SAT 100; BMI 23.1
[2018-08-15 19:34] VITALS: BP 140/93; PULSE 70; RESP 16; O2SAT 98
--- NOTE | 2018-08-15 19:55 | EKG12_ITS ---
Test Reason : ABD PAIN Blood Pressure : / mmHG Vent. Rate : 065 BPM Atrial Rate : 065 BPM P-R Int : 142 ms QRS Dur : 078 ms QT Int : 438 ms P-R-T Axes : -27 040 027 degrees QTc Int : 455 ms Normal sinus rhythm Normal ECG Confirmed by FERMÍN MICHELLE, ERASTO ([id number]), editor book TERA HENDRICKSON ([id number]) on 08/19/2018 10:16:55 AM Referred By: ALAN Confirmed By:ERASTO KOVACS MD
--- NOTE | 2018-08-15 19:55 | CT_ITS ---
STUDY: CT ABDOMEN AND PELVIS WITHOUT CONTRAST REASON FOR EXAM: Female, 68 years old. Abdominal pain. RADIATION DOSAGE (If Supplied By Facility): CTDIvol = ( 6.10 ) mGy, DLP = ( 294.16 ) mGycm TECHNIQUE: Transaxial images were obtained from the dome of the diaphragm to the symphysis pubis without oral contrast, and without intravenous contrast. Sagittal and coronal images were reconstructed. Individualized dose optimization techniques were used for this CT. COMPARISON: 08/07/2018. FINDINGS: The visualized lung bases are unremarkable. The visualized portions of the heart are within normal limits. Low-attenuation lesions in the liver measure up to 1.4 cm. These are stable compared to prior studies. The liver is otherwise unremarkable. Normal gallbladder and extrahepatic biliary system. Normal spleen. Normal pancreas. Normal bilateral adrenal glands. The kidneys are normal, with no stones or hydronephrosis. No ureteral stones are seen. The aorta is normal in caliber. There is no bowel obstruction or inflammatory change. Diverticulosis is noted, with no evidence of acute diverticulitis. Normal appendix. Stool burden is moderate. There is no free fluid, free air, or organized collection. Normal urinary bladder. Normal visualized uterus. Clips from bilateral tubal ligation are noted. Normal abdominal wall. Degenerative changes are noted at the L3-4 level, with 3 mm degenerative anterolisthesis and disc space narrowing. CT/Abdomen/Pelvis without Cont IMPRESSION: 1. No acute process. No change from prior studies. 2. Stable hepatic hypodensities. 3. Diverticulosis, no diverticulitis. 4. Stable lumbar degenerative changes. Electronically Signed: Elena Norton MD at 21:39 EDT Tel , Service support ,
[2018-08-15] MEDS: 0.9% Normal Saline 1,000 ML 125 ML IV (20:37)
[2018-08-15 20:50] LABS: Absolute Lymphocyte Count 1.88 X10^3/ul (0.83-4.51); Absolute Neutrophil Count 1.7 X10^3/uL (2.0-7.7); Basophil# 0.04 X10^3/uL; Eosinophil# 0.08 X10^3/uL; Hematocrit 36.2 % (37-47); Hemoglobin 12.4 g/dl (12.0-15.0); Lymphocyte # 1.88 X10^3/ul (4.0); Lymphocyte % 46.2 % (19-41); Mean Corp Hgb Conc 34.3 g/gl (32-36); Mean Corpuscular Hgb 29.7 pg (27.0-32.0); Mean Corpuscular Volume 86.6 fL (81-99); Mean Platelet Vol. 9.3 fl (6.2-12.0); Monocyte# 0.37 X10^3/uL; Monocyte% 9.1 % (0-10); Neutrophil % 41.7 % (47-70); Platelet Count 189 K/mm3 (150-450); RBC Distribution Width CV 12.6 % (11.6-14.6); RBC Distribution Width SD 39.4 fl (35.1-43.9); Red Blood Count 4.18 M/mm3 (4.2-5.4); White Blood Count 4.1 K/mm3 (4.4-11.0)
[2018-08-15 20:53] LABS: POSITIVE COUNT NO; POSITIVE DIFFERENTIAL NO; POSITIVE MORPHOLOGY NO
[2018-08-15 21:11] LABS: ALB/GLOB Ratio 1.2 RATIO (0.9-2.4); AST(SGOT) 22 U/L (15-37); Alanine Aminotransfer ALT/SGPT 28 U/L (13-56); Albumin, Serum 4.1 g/dL (3.2-5.0); Alkaline Phosphatase 71 U/L (45-117); Anion Gap 9 (5-15); BUN 15 mg/dL (7-18); Calcium,Total 8.9 mg/dL (8.5-10.1); Chloride 108 mmol/L (98-107); Creatinine, Serum 1.07 mg/dL (0.55-1.02); EST Glomerular Filtration Rate 54 mL/min (>60); Est Glom Filt Rate - Afr Amer 65 mL/min (>60); Estimated Creatinine Clearance 41.05 ml/min; Globulin 3.4 g/dL (2.2-4.2); Glucose 93 mg/dL (74-106); Lipase 408 U/L (73-393); Potassium 3.2 mmol/L (3.5-5.1); Protein, Total 7.5 g/dL (6.4-8.2); Sodium Level 140 mmol/L (136-145)
[2018-08-15 22:00] LABS: Bacteria 0 SEEN /hpf (None Seen); Mucous, Urine 0 SEEN /hpf (<or=2+)
[2018-08-15 22:01] LABS: Color, Urine Yellow (Yellow); Glucose, Dipstick Normal (Normal); Ketone-Dipstick 15 mg/dl (Negative); Leukocyte Esterase-Dipstick 500 /ul (Negative); Nitrite-Dipstick Negative (Negative); Occult Blood-Urine 25 /ul (Negative); Protein-Dipstick 15 mg/dl (Negative); Urine Bilirubin Dipstick Negative (Negative); Urine Clarity Sl. Cloudy (Clear); Urine Urobilinogen 1 mg/dl (Normal)
[2018-08-15 22:04] LABS: White Blood Cells 10-25 SEEN /hpf (0-5)
[2018-08-15 22:05] LABS: Red Blood Cells-Urine 0-5 SEEN /hpf (0-5)
[2018-08-15 22:07] VITALS: BP 152/81; PULSE 66; RESP 16; O2SAT 100
[2018-08-15 22:07] LABS: Squamous Epithelial Cells - UA 5-10 SEEN /hpf (5-10)
[2018-08-15 22:08] LABS: Hyaline Cast 0-5 SEEN /lpf (0-5)
--- NOTE | 2018-08-15 22:42 | ED.DCSUM_ITS ---
- ER Visit Summary Date of Service: 08/15/18 Chief Complaint: [Abdominal pain] History of Present Illness: The patient is a 68 F [presents to the emergency department complaint of abdominal pain that she has had for several months. Patient was admitted recently to the hospital and had workup including EGD. Patient had a CT scan of the abdomen pelvis a month ago that was relatively unremarkable. Patient complains of epigastric pain as well as more recently left lower quadrant pain. She has had no fever. Patient is a poor historian a lot of the history comes from the patient's daughter. Patient has an expressive a aphasia and has history of dementia therefore she can be difficult to understand. Patient does have a history of GERD, hypertension, hypothyroidism, and upper GI bleed. Past surgical history significant for tubal ligation and thyroidectomy.] Physical Examination: [HEENT-PERRLA, EOMI. Cranial nerves II through XII grossly intact. TMs clear. Mucous membranes moist. No adenopathy. Cardiovascular-regular rate and rhythm without murmur or ectopy Lungs-clear to auscultation, chest wall stable without crepitus or subcu emphysema Abdomen-normoactive bowel sounds, soft. Patient has tenderness palpation over left lower quadrant mostly. There is no rebound, rigidity, or perineal signs. Extremities-intact ?4, normal range of motion, normal pulses, atraumatic] Test Results: [EKG obtained arrival shows sinus rhythm with a ventricular rate of 65 bpm with no acute ST segment changes. CBC with differential and a white count of 4.1, hemoglobin 12, hematocrit 36, platelets 189. Chemistries unremarkable. LFTs were normal. Urinalysis showed 500 leukocyte esterase, 1025 WBCs, 0 bacteria. Troponin was less than 0.015. CT scan of the abdomen pelvis without contrast unremarkable.] Emergency Department Course and Treatment: [Patient denies anything for pain in the emergency department.] Urine culture was sent. Treatment Plan: [Patient received 1 dose of Bactrim and I will give her prescription for 3 days of Bactrim.] Disposition: [Discharged home in stable condition] Impression: [Abdominal pain-etiology uncertain UTI] This note was generated with [employer] software. It may contain incorrect words, spelling, and punctuation that were not noted in review of the chart prior to signing ED Disposition - Plan for ED Patient: Chief Complaint: Abd Pain Referrals: Ayanna Yousif MD [Primary Care Provider] -
--- NOTE | 2018-08-15 22:42 | ED.DEP ---
ED Disposition - Plan for ED Patient: Chief Complaint: Abd Pain Instructions: ED Abdominal Pain Unkn Cause, ED UTI Cystitis Female Prescriptions: Smz/Tmp Ds [Bactrim Ds] 1 tab PO BID #6 tab Referrals: Ayanna Yousif MD [Primary Care Provider] - 3-5 Days
[2018-08-15] MEDS: Smz/Tmp Ds Tablet 1 TABLET PO (22:52)
[2018-08-15 23:37] VITALS: BP 159/94; PULSE 77; RESP 16; O2SAT 100
== END 2018-08-15 23:40 | disposition home or self-care (01) ==
PROVIDERS: Emergency Provider Emergency Medicine; Family Provider Internal Medicine; PCP Internal Medicine
DX: N39.0 Urinary tract infection, site not specified (principal); R10.32 Left lower quadrant pain; K21.9 Gastro-esophageal reflux disease without esophagitis; I10 Essential (primary) hypertension; E03.9 Hypothyroidism, unspecified; R47.01 Aphasia; F03.90 Unspecified dementia, unspecified severity, without behavioral disturbance, psychotic disturbance, mood disturbance, and anxiety; Z87.19 Personal history of other diseases of the digestive system; Z79.899 Other long term (current) drug therapy
CPT/HCPCS: 74176; 80053; 81001; 83690; 84484; 85025; 93005; 96360; 96361; 99284; J7030; A4216

== ENCOUNTER 2018-08-29 03:09 | Emergency (ER) | payer MEDICARE, SELFPAY ==
[2018-08-29 03:10] VITALS: BP 132/72; PULSE 71; RESP 18; TEMP 36.4; O2SAT 99; BMI 21.2
--- NOTE | 2018-08-29 03:15 | CT_ITS ---
STUDY: CT ABDOMEN AND PELVIS WITHOUT CONTRAST REASON FOR EXAM: Female, 68 years old. Abdominal pain. RADIATION DOSAGE (If Supplied By Facility): CTDIvol = ( 6.04 ) mGy, DLP = ( 271.80 ) mGycm TECHNIQUE: Transaxial images were obtained from the dome of the diaphragm to the symphysis pubis without oral contrast, and without intravenous contrast. Sagittal and coronal images were reconstructed. Individualized dose optimization techniques were used for this CT. COMPARISON: CT of the abdomen and pelvis dated August 15, 2018. FINDINGS: The visualized lung bases are unremarkable. The visualized portions of the heart are within normal limits. There are scattered lucencies within the liver, similar to previous CT and probably represent cysts. Normal gallbladder and extrahepatic biliary system. Normal spleen. Normal pancreas. Normal bilateral adrenal glands. Normal right kidney. Normal left kidney. The gastric wall is thickened measuring up to 3.9 cm in thickness. Neoplastic process is not excluded. There is no evidence for dilated bowel, ascites or pneumoperitoneum. The small bowel has a grossly normal appearance. Stool is visible throughout the colon with scattered diverticula. There are multiple diverticula within the sigmoid colon. The appendix is visualized and appears normal. There is mild atherosclerotic calcification of the abdominal aorta with elongation and tortuosity, but without a demonstrated aneurysm. Normal inferior vena cava. Normal retroperitoneum. Normal urinary bladder. Normal visualized uterus. There is a small umbilical hernia containing fat. There are diffuse degenerative changes of the visualized lumbar spine. The bones appear osteopenic. There is mild anterolisthesis at L3-4. CT/Abdomen/Pelvis without Cont IMPRESSION: 1. Abnormal thickening of the gastric wall. This may be the result of acute or chronic inflammation. However, mass cannot be excluded particularly of the gastric fundus. 2. Unchanged appearance to hepatic lesions likely representing cysts. 3. Colonic diverticulosis. Electronically Signed: Mercedes Iglesias MD at 4:40 EDT , Service support ,
--- NOTE | 2018-08-29 03:18 | ED.DCSUM_ITS ---
- ER Visit Summary Date of Service: 08/29/18 Chief Complaint: Abdominal pain History of Present Illness: The patient is a 68 F who has had abdominal pain for the past 2 hours. She states that sharp and diffuse. Patient has a history of primary a phase he has so history is difficult. Caregiver gives most of the history. No nausea or vomiting. No diarrhea. There is a question is whether the patient was constipated so she was given Colace yesterday. She has been seen here recently for bleeding from the stomach. This is been for the past couple of months. She had a recent EGD which showed this diagnosis. She also has a history of diverticulosis. Physical Examination: Vital signs reviewed. HEENT exam unremarkable. Heart is regular rate and rhythm without murmurs. Lungs are clear to auscultation. Abdomen soft with tenderness in the left lower quadrant. No distention. Extremities reveal no edema. She is alert and oriented to self only. She has expressive aphasia which is old. The rest of her neurologic exam is at baseline. Test Results: Laboratory studies are unremarkable except for potassium 3.1. Urinalysis negative for infection or blood. CAT scan reveals gastric irritation which the patient has been having recently and is seeing a surgeon for. Emergency Department Course and Treatment: Patient was given Bentyl and feels better. I do not find any intra-abdominal infection. She does have some chronic gastric findings which she is seeing a surgeon for. At this point I do not feel she needs any other further interventions. She feels better and wishes to go home. She will follow-up with her surgeon on Thursday as scheduled. Treatment Plan: [] Disposition: Discharge Impression: Abdominal pain This note was generated with [employer] dictation software. It may contain incorrect words, spelling, and punctuation that were not noted in review of the chart prior to signing ED Disposition - Plan for ED Patient: Chief Complaint: Abd Pain Referrals: Ayanna Yousif MD [Primary Care Provider] -
[2018-08-29] MEDS: Dicyclomine 20 MG/2 ML Vial IM (03:43)
[2018-08-29 04:06] LABS: Absolute Neutrophil Count 1.6 X10^3/uL (2.0-7.7); Hemoglobin 12.2 g/dl (12.0-15.0)
[2018-08-29 04:14] LABS: Hematocrit 34.9 % (37-47); RBC Distribution Width CV 12.7 % (11.6-14.6); Red Blood Count 4.06 M/mm3 (4.2-5.4); White Blood Count 4.5 K/mm3 (4.4-11.0)
[2018-08-29 04:15] LABS: Absolute Lymphocyte Count 2.28 X10^3/ul (0.83-4.51); Basophil# 0.02 X10^3/uL; Basophil% 0.4 % (0-1); Eosinophils% 2.2 % (0-5); Lymphocyte # 2.28 X10^3/ul (4.0); Lymphocyte % 50.8 % (19-41); Mean Platelet Vol. 9.1 fl (6.2-12.0); Monocyte# 0.49 X10^3/uL; Monocyte% 10.9 % (0-10); Neutrophil % 35.7 % (47-70); POSITIVE COUNT NO; POSITIVE DIFFERENTIAL NO; POSITIVE MORPHOLOGY NO; Platelet Count 206 K/mm3 (150-450); RBC Distribution Width SD 39.8 fl (35.1-43.9)
[2018-08-29 04:18] LABS: ALB/GLOB Ratio 1.4 RATIO (0.9-2.4); AST(SGOT) 19 U/L (15-37); Alanine Aminotransfer ALT/SGPT 24 U/L (13-56); Albumin, Serum 4.2 g/dL (3.2-5.0); Alkaline Phosphatase 63 U/L (45-117); Anion Gap 13 (5-15); BUN 16 mg/dL (7-18); BUN/Creat Ratio 15.8 RATIO (10-20); Calcium,Total 9.6 mg/dL (8.5-10.1); Chloride 108 mmol/L (98-107); Creatinine, Serum 1.01 mg/dL (0.55-1.02); EST Glomerular Filtration Rate 58 mL/min (>60); Est Glom Filt Rate - Afr Amer 70 mL/min (>60); Estimated Creatinine Clearance 41.58 ml/min; Globulin 3.1 g/dL (2.2-4.2); Glucose 86 mg/dL (74-106); Lipase 237 U/L (73-393); Potassium 3.1 mmol/L (3.5-5.1); Protein, Total 7.3 g/dL (6.4-8.2); Sodium Level 142 mmol/L (136-145)
[2018-08-29 04:38] LABS: Bacteria 0 SEEN /hpf (None Seen); Mucous, Urine 0 SEEN /hpf (<or=2+); Red Blood Cells-Urine 0 SEEN /hpf (0-5)
[2018-08-29 04:45] LABS: Color, Urine Yellow (Yellow); Glucose, Dipstick Normal (Normal); Ketone-Dipstick Negative (Negative); Leukocyte Esterase-Dipstick 500 /ul (Negative); Nitrite-Dipstick Negative (Negative); Occult Blood-Urine 10 /ul (Negative); Protein-Dipstick 15 mg/dl (Negative); Specific Gravity, Urine 1.015 (1.002-1.030); Urine Bilirubin Dipstick Negative (Negative); Urine Clarity Clear (Clear); Urine Urobilinogen Normal (Normal)
[2018-08-29 05:03] LABS: Squamous Epithelial Cells - UA 0-5 SEEN /hpf (5-10); Transitional Epithelial - Ur 0-5 SEEN /hpf (0-5); White Blood Cells 0-5 SEEN /hpf (0-5)
--- NOTE | 2018-08-29 05:07 | ED.DEP ---
ED Disposition - Plan for ED Patient: Disposition: Home or Assisted Living Chief Complaint: Abd Pain Instructions: ED Abdominal Pain Unkn Cause Referrals: Ayanna Yousif MD [Primary Care Provider] -
[2018-08-29 05:16] VITALS: BP 120/68; PULSE 56; RESP 18; O2SAT 100
== END 2018-08-29 05:21 | disposition home or self-care (01) ==
PROVIDERS: Emergency Provider Emergency Medicine; Family Provider Internal Medicine; PCP Internal Medicine
DX: R10.32 Left lower quadrant pain (principal); K59.00 Constipation, unspecified; R47.01 Aphasia; K57.90 Diverticulosis of intestine, part unspecified, without perforation or abscess without bleeding; F03.90 Unspecified dementia, unspecified severity, without behavioral disturbance, psychotic disturbance, mood disturbance, and anxiety; Z87.19 Personal history of other diseases of the digestive system; Z79.899 Other long term (current) drug therapy
CPT/HCPCS: 74176; 80053; 81001; 83690; 85025; 96372; 99284; A4216

== ENCOUNTER 2018-09-17 06:57 | Day surgery (SDC) | payer MEDICARE, SELFPAY ==
[2018-09-17 07:40] VITALS: BP 87/56; PULSE 73; RESP 16; TEMP 36.9; O2SAT 100; BMI 21.9
[2018-09-17 08:53] VITALS: BP 100/69; BP 87/56; PULSE 76; RESP 16; TEMP 36.9; O2SAT 100
[2018-09-17 08:58] VITALS: BP 101/66; BP 87/56; PULSE 68; RESP 16; O2SAT 99
--- NOTE | 2018-09-17 09:02 | OP.ENDO_ITS ---
Patient Name: Karen Israel Procedure Date: 09/17/2018 8:16 AM Date of : 1950 Age: 68 Procedure: Upper GI endoscopy Indications: Recent gastrointestinal bleeding, Patient had blood in stomach on prior EGD. Has been on carafate and PPI. Providers: Colby Valdez MD Referring MD: Colby Valdez MD Medicines: Monitored Anesthesia Care Patient Profile: This is a 68 year old female. Refer to note in patient chart for documentation of history and physical. Complications: No immediate complications. Procedure: Pre-Anesthesia Assessment: - Prior to the procedure, a History and Physical was performed, and patient medications and allergies were reviewed. The patient's tolerance of previous anesthesia was also reviewed. The risks and benefits of the procedure and the sedation options and risks were discussed with the patient. All questions were answered, and informed consent was obtained. Prior Anticoagulants: The patient has taken no previous anticoagulant or antiplatelet agents. After reviewing the risks and benefits, the patient was deemed in satisfactory condition to undergo the procedure. After obtaining informed consent, the endoscope was passed under direct vision. Throughout the procedure, the patient's blood pressure, pulse, and oxygen saturations were monitored continuously. The gastroscope was introduced through the mouth, and advanced to the second part of duodenum. The upper GI endoscopy was accomplished without difficulty. The patient tolerated the procedure well. Scope In: 8:26:46 AM Scope Out: 8:29:35 AM Total Procedure Duration Time 0 hours 2 minutes 49 seconds Findings: The esophagus was normal. The stomach was normal. No bleeding or stigmata of bleeding in the stomach. The examined duodenum was normal. Impression: - Normal esophagus. - Normal stomach. - Normal examined duodenum. - No specimens collected. Recommendation: - Discharge patient to home. - Resume previous diet. - Continue present medications. Procedure Code(s): --- Professional --- 80423, Esophagogastroduodenoscopy, flexible, transoral; diagnostic, including collection of specimen(s) by brushing or washing, when performed (separate procedure) Diagnosis Code(s): --- Professional --- K92.2, Gastrointestinal hemorrhage, unspecified CPT copyright 2017 [employer]. All rights reserved. The codes documented in this report are preliminary and upon naval designer review may be revised to meet current compliance requirements. Colby Valdez MD 09/17/2018 9:02:20 AM This report has been signed electronically. Number of Addenda: 0 Note Initiated On: 09/17/2018 8:16 AM
[2018-09-17 09:03] VITALS: BP 87/56; BP 89/75; PULSE 71; RESP 16; O2SAT 100
[2018-09-17 09:05] VITALS: BP 105/58; BP 87/56; PULSE 65; RESP 16; TEMP 36.2; O2SAT 99
--- NOTE | 2018-09-17 09:06 | OP.ENDO_ITS ---
Patient Name: Karen Israel Procedure Date: 09/17/2018 8:31 AM Date of : 1950 Age: 68 Procedure: Colonoscopy Indications: Abdominal pain in the left lower quadrant, Heme positive stool Providers: Colby Valdez MD Referring MD: Colby Valdez MD Medicines: Monitored Anesthesia Care Patient Profile: This is a 68 year old female. Refer to note in patient chart for documentation of history and physical. Last Colonoscopy: several years ago. This is a 68 year old female. Refer to note in patient chart for documentation of history and physical. Complications: No immediate complications. Estimated blood loss: None. Procedure: Pre-Anesthesia Assessment: - Prior to the procedure, a History and Physical was performed, and patient medications and allergies were reviewed. The patient's tolerance of previous anesthesia was also reviewed. The risks and benefits of the procedure and the sedation options and risks were discussed with the patient. All questions were answered, and informed consent was obtained. Prior Anticoagulants: The patient has taken no previous anticoagulant or antiplatelet agents. After reviewing the risks and benefits, the patient was deemed in satisfactory condition to undergo the procedure. After I obtained informed consent, the scope was passed under direct vision. Throughout the procedure, the patient's blood pressure, pulse, and oxygen saturations were monitored continuously. The Colonoscope was introduced through the anus and advanced to the cecum, identified by appendiceal orifice and ileocecal valve. The colonoscopy was performed without difficulty. The patient tolerated the procedure well. The quality of the bowel preparation was good. Scope In: 8:32:32 AM Scope Withdrawal Time 0 hours 6 minutes 41 seconds Scope Out: 8:48:02 AM Total Procedure Duration Time 0 hours 15 minutes 30 seconds Findings: The entire examined colon appeared normal on direct and retroflexion views. Multiple small and large-mouthed diverticula were found in the sigmoid colon and descending colon. Impression: - The entire examined colon is normal on direct and retroflexion views. - Diverticulosis in the sigmoid colon and in the descending colon. - No specimens collected. Recommendation: - Discharge patient to home. - Resume previous diet. - Continue present medications. - Repeat colonoscopy is not recommended due to current age (66 years or older) for screening purposes. Procedure Code(s): --- Professional --- 62638, Colonoscopy, flexible; diagnostic, including collection of specimen(s) by brushing or washing, when performed (separate procedure) Diagnosis Code(s): --- Professional --- R10.32, Left lower quadrant pain R19.5, Other fecal abnormalities K57.30, Diverticulosis of large intestine without perforation or abscess without bleeding CPT copyright 2017 [employer]. All rights reserved. The codes documented in this report are preliminary and upon medical biller coder review may be revised to meet current compliance requirements. Colby Valdez MD 09/17/2018 9:05:56 AM This report has been signed electronically. Number of Addenda: 0 Note Initiated On: 09/17/2018 8:31 AM
[2018-09-17 09:35] VITALS: BP 87/56
== END 2018-09-17 09:50 | disposition home or self-care (01) ==
LOC: EN 06:57 → AC 06:58
PROVIDERS: Family Provider Internal Medicine; PCP Internal Medicine; Referring Provider Surgery; Visit Provider Surgery
PROC: 0DJD8ZZ Inspection of Lower Intestinal Tract, Via Natural or Artificial Opening Endoscopic (ICD-10-PCS; CPT 45378; principal; 2018-09-17 08:25)
DX: K92.2 Gastrointestinal hemorrhage, unspecified (principal); K57.30 Diverticulosis of large intestine without perforation or abscess without bleeding; I10 Essential (primary) hypertension; J45.909 Unspecified asthma, uncomplicated; F03.90 Unspecified dementia, unspecified severity, without behavioral disturbance, psychotic disturbance, mood disturbance, and anxiety; K21.9 Gastro-esophageal reflux disease without esophagitis; E78.00 Pure hypercholesterolemia, unspecified; E06.9 Thyroiditis, unspecified; Z87.19 Personal history of other diseases of the digestive system; Z79.899 Other long term (current) drug therapy
CPT/HCPCS: 43235; 45378; J7120; J2405